=== PATIENT | female | born 1980 | race Caucasian/White ===

== ENCOUNTER 2017-02-27 18:26 | Emergency (ER) | payer OTHER ==
[~2017-02-27] VITALS: Ht 165.1 cm; Wt 59.0 kg
[2017-02-27 19:09] VITALS: BP 111/75
== END 2017-02-27 19:29 | disposition home or self-care (01) ==
LOC: ER 18:29
DX: J02.9 Acute pharyngitis, unspecified (principal)
CPT/HCPCS: 99283; A4606; Z7610

== ENCOUNTER 2019-07-11 17:58 | Emergency (ER) | payer MEDICAID, OTHER ==
[~2019-07-11] VITALS: Ht 165.1 cm; Wt 59.0 kg
--- NOTE | 2019-07-11 18:10 | NUR ---
left eye redness since thursday and dizzy x 1 month on and off better today. Patient a/ox4, ambulatory with steady gait, afebrile. No distress noted.
[2019-07-11] MEDS ORDERED: ACETAMINOPHEN ES 500 MG TABLET ONE (18:27)
[2019-07-11] MEDS ORDERED: ACETAMINOPHEN 325 MG TABLET PO ONE (18:30)
--- NOTE | 2019-07-11 19:38 | NUR ---
Patient ambulatory with steady gait. No distress noted. Patient discharged to home in stable condition. Written and verbal after care instructions given. Patient verbalizes understanding of instruction.
[2019-07-11 19:39] VITALS: BP 126/87
== END 2019-07-11 19:39 | disposition home or self-care (01) ==
LOC: ER 18:01
DX: H11.32 Conjunctival hemorrhage, left eye (principal); R51 Headache
CPT/HCPCS: 70450-TC